=== PATIENT | female | born 1930 | race Caucasian/White ===

== ENCOUNTER → 2016-05-26 | Outpatient (CLI) | payer OTHER, MEDICARE ==
[~2016-05-26] MED LIST: DIAZEPAM 5 MG TABLET ONE
--- NOTE | 2016-05-27 08:07 | DI ---
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 Previous Exam: None at this facility. Findings: Multiple helically acquired CT images are obtained through the cervical, thoracic and lumbar spine wi thout contrast. Merged SPECT images are also obtained following the intravenous administration of 32. 8 mCi of technetium 99m MDP, and demonstrate an infrarenal abdominal aortic aneurysm measuring 3.8 cm in AP dimension. There is no free air nor free fluid. Peripheral vascular calcifications are noted throughout. There is subsegmental atelectasis in the lung bases bilaterally. 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 The surrounding soft tissues are unremarkable. The liver, adrenals, kidneys, spleen and pancreas are unremarkable. There is no mesenteric or retrope ritoneal lymphadenopathy. Large SPECT CT images are obtained of the whole body, and demonstrate some diffuse increased uptake t hroughout the cervical spine with focal increased uptake involving the posterior articulating facet o f the left C3 level. There is also increased and plate activity of the fifth sixth and seventh thoracic vertebral levels. There are also some endplate uptake of the anterior cervical spine throughout. The lumbar spine demonstrates no focal abnormal increased uptake there is some mild increased uptake involving the facets of the upper lumbar spine on the left along the concave portion of some dextrosc oliosis of the lumbar spine. There is some minimal excretory signal within the renal collecting systems. Postsurgical changes are seen of the right hip. Impression: Diffuse increased uptake throughout the entire spine consistent with a degenerative pattern. Although there is significant degenerative changes of the cervical spine there is no focally increased uptake to suggest any specific level of degenerative arthropathy of the cervical spine. There is slightly m ore uptake within the left C3 posterior articulating facet corresponding with more facet hypertrophy at the C2/3 level. Increased uptake of the thoracic spine at the T5, T6 and T7 levels. There is some mild anterior wedgi ng at these levels, but no visible fracture. 3.8 cm infrarenal abdominal aortic aneurysm.
== END ==
LOC: NM 10:58
PROVIDERS: ATTEND Physician Assistant
DX: M47.22 Other spondylosis with radiculopathy, cervical region (principal); M47.26 Other spondylosis with radiculopathy, lumbar region; M47.814 Spondylosis without myelopathy or radiculopathy, thoracic region
CPT/HCPCS: 72125; 72128; 72131; A9503

== ENCOUNTER → 2016-06-04 | Outpatient (CLI) | payer OTHER, MEDICARE ==
[2016-06-04 09:42] LABS: HEMOGLOBIN A1C 6.19 % (4.2-6.0); MEAN BLOOD GLUCOSE (CALC) 120.127 mg/dL
[2016-06-04 10:21] LABS: FREE T4 (FREE THYROXINE) 1.25 ng/dL (0.93-1.71)
[2016-06-05 16:47] LABS: VITAMIN B12 (SERUM) >1400 ng/L (180 - 914)
== END ==
LOC: LAB 09:10
PROVIDERS: ATTEND Neurological Surgery
DX: E03.9 Hypothyroidism, unspecified (principal); G62.9 Polyneuropathy, unspecified; I10 Essential (primary) hypertension
CPT/HCPCS: 36415; 82306; 82607; 82746; 83036; 84439; 84443

== ENCOUNTER → 2016-06-16 | Outpatient (CLI) | payer OTHER, MEDICARE | LOC: MMPC 10:00 | PROVIDERS: ATTEND Neurological Surgery | DX: M47.817 Spondylosis without myelopathy or radiculopathy, lumbosacral region (principal) | CPT/HCPCS: 99212; G0463 ==

== ENCOUNTER 2016-07-02 11:56 | Day surgery (SDC) | payer OTHER, MEDICARE ==
[2016-07-02] MEDS ORDERED: Ropivacaine 0.2% VIAL 2 MG/ML VIAL IAC ONE (12:00)
[2016-07-02] MEDS ORDERED: SODIUM BICARB IM ONE ×2 (12:00)
[2016-07-02] MEDS ORDERED: LIDOCAINE IM ONE ×2 (12:00)
[2016-07-02] MEDS ORDERED: BETAMET ACET/BETAMET NA PH 6 MG/1 ML - 5 ML IAC ONE (12:00)
[2016-07-02] MEDS ORDERED: Iopamidol Inj 61% 50 ML VIAL INTRATHEC ONE (12:00)
[2016-07-02 13:39] VITALS: RESP 22; TEMP 98.5
--- NOTE | 2016-07-02 17:46 | GEN.OPNOTE ---
Facet Injection Procedure: Other (Left L5 dorsal ramus block) Procedure Code - Neurosurgery: 20434 : L/S Spine Facet/Med, 1st Preoperative Diagnosis: Left L5-S1 facet arthropathy -: Consent: Rationale for procedure, nature of procedure, possible risks and benefits were discussed with the patient. Risks including allergic reaction to medications, known effects of steroid medications including transient elevations in blood sugar with aggravation of pre-existing diabetes and remote risk of aseptic necrosis of the hip. Infection or bleeding with potential risk of neurologic injury with weakness, paralysis or were all reviewed with the patient who wished to proceed. Anesthesia, sedation: No intravenous access or sedation was used. Physiologic monitoring of pulse and oxygen saturation was utilized. Procedure: The patient was placed prone on the operating room table, prepped with Chloroprep and sterilely draped. The skin was anesthetized with 1% Buffered Xylocaine. Under fluoroscopic control a 22-gauge needle was advanced to the junction of the left S1 superior facet and sacral ala. Omnipaque was injected under real-time fluoroscopy. Following this [1] ml of a mixture of Celestone (6mg/ml) and Ropivacaine was injected. AP images of the final needle placement was obtained. The needle was removed and the patient returned to the post procedure recovery room where they were monitored for any side effects. Pain assessment: Preprocedure pain [5]/10, post procedure pain [0]/10. Discharge instructions: Patient was given a pain log to be filled out and returned. A delayed response to the steroids of 2-5 days was discussed.
== END 2016-07-02 13:43 | disposition home or self-care (01) ==
LOC: SDSC 11:56
PROVIDERS: ATTEND Neurological Surgery
DX: M12.88 Other specific arthropathies, not elsewhere classified, other specified site (principal)
CPT/HCPCS: 64493; 76000; J0702; J2795; J2001

== ENCOUNTER → 2016-07-10 | Outpatient (CLI) | payer OTHER, MEDICARE ==
[2016-07-10 16:02] LABS: BILIRUBIN,TOTAL 0.5 mg/dL (0.3-1.2); BUN/CREATININE RATIO 18.75 (6-20); CALCIUM 9.5 mg/dL (8.7-10.7); CREATININE 0.8 mg/dL (0.50-1.20); POTASSIUM 4.7 meq/L (3.8-5.2)
== END ==
LOC: MOB LAB 14:50
PROVIDERS: ATTEND Nurse Practitioner
DX: R42 Dizziness and giddiness (principal); I10 Essential (primary) hypertension; E78.5 Hyperlipidemia, unspecified
CPT/HCPCS: 80053

== ENCOUNTER → 2016-08-26 | Outpatient (CLI) | payer OTHER, MEDICARE ==
--- NOTE | 2016-08-26 12:00 | DI ---
AP PELVIS and RIGHT HIP, 08/26/2016 10:43 AM: Clinical History: Acute right hip pain. Previous Exam: 08/03/2013. There is no soft tissue abnormality. The bony structures of the pelvis are normal. 2 views of the rig ht hip show the patient to be status post total right hip replacement. The prosthetic device articula royer normally and there is no evidence of loosening of the prosthesis. Readin. Status post total right hip replacement. The prosthesis articulates normally and there is no evid ence of loosening of the prosthetic device. There has been no change. 2. The AP pelvis view is unremarkable.
--- NOTE | 2016-08-26 12:17 | DI ---
LUMBAR SPINE SERIES, 08/26/2016 10:43 AM: Clinical History: Acute right hip pain. Previous Exam: 09/24/2015. 3 routine upright views are submitted. There is marked dextroscoliosis of the mid lumbar spine. There is severe disc space narrowing at all lumbar levels. Degenerative arthritic changes are present at e very lumbar apophyseal joint but most severely on the left side from T12-L1 through L2-3 and bilatera lly from L3-4 through L5-S1. Both SI joints are normal. There is a saccular aneurysm of the mid abdom inal aorta. The aorta is displaced to the right of midline at the level of the aneurysm. The exact me asurements are difficult to determine because of lack of calcification on the anterior wall but the e stimated AP dimension is 49 mm. The previous exam showed a measurement of approximately 47 mm. Readin. Diffuse disc space narrowing at every lumbar level with degenerative arthritic changes in all of the apophyseal joints bilaterally but most severely between T12-L1 through L2-3 on the left side and on both sides between L3-4 and L5-S1. There is marked dextroscoliosis of the mid lumbar spine. 2. There is a saccular mid abdominal aortic aneurysm probably in the range of 5 cm in diameter witho ut correction for magnification.
== END ==
LOC: ORTHO 10:50
PROVIDERS: ATTEND Orthopaedic Surgery
DX: M25.551 Pain in right hip (principal); S70.01XA Contusion of right hip, initial encounter; Z96.641 Presence of right artificial hip joint; W19.XXXA Unspecified fall, initial encounter
CPT/HCPCS: 72100; 73502

== ENCOUNTER → 2016-09-01 | Outpatient (CLI) | payer OTHER, MEDICARE | LOC: MMPC 10:00 | PROVIDERS: ATTEND Orthopaedic Surgery | DX: S70.01XD Contusion of right hip, subsequent encounter (principal); W18.30XD Fall on same level, unspecified, subsequent encounter; Z96.641 Presence of right artificial hip joint | CPT/HCPCS: 99212; G0463 ==

== ENCOUNTER → 2016-09-03 | Outpatient (CLI) | payer OTHER, MEDICARE | LOC: MMPC 11:11 | PROVIDERS: ATTEND Internal Medicine | DX: M54.5 Low back pain (principal); I25.10 Atherosclerotic heart disease of native coronary artery without angina pectoris; M48.06 Spinal stenosis, lumbar region; Z95.1 Presence of aortocoronary bypass graft; E78.5 Hyperlipidemia, unspecified; E03.9 Hypothyroidism, unspecified; Z96.653 Presence of artificial knee joint, bilateral; Z02.89 Encounter for other administrative examinations | CPT/HCPCS: 99214; G0463 ==

== ENCOUNTER → 2016-10-16 | Outpatient (CLI) | payer OTHER, MEDICARE | LOC: MMPC 10:00 | PROVIDERS: ATTEND Podiatrist Foot & Ankle Surgery | DX: M79.672 Pain in left foot (principal); R26.2 Difficulty in walking, not elsewhere classified; L84 Corns and callosities; G62.9 Polyneuropathy, unspecified | CPT/HCPCS: 11055 ×2; 99202; G0463 ==

== ENCOUNTER → 2016-11-17 | Outpatient (CLI) | payer OTHER, MEDICARE | LOC: MMPC 11:11 | PROVIDERS: ATTEND Internal Medicine | DX: M48.06 Spinal stenosis, lumbar region (principal); K59.00 Constipation, unspecified | CPT/HCPCS: 99214; G0463 ==

== ENCOUNTER → 2016-12-17 | Outpatient (CLI) | payer OTHER, MEDICARE ==
--- NOTE | 2016-12-17 11:58 | DI ---
XR KNEE 1 OR 2 VWS,12/17/2016 10:39 AM: Clinical History: Right knee pain Previous Exam: December 04, 2014 Findings: AP and lateral views of the right knee are obtained, and demonstrate new postsurgical changes consist ent with right total knee arthroplasty. Postsurgical changes are seen. There are prior surgical clips from saphenous vein harvest. There is no hardware loosening. No fractures are seen. Impression: Status post right total knee arthroplasty.
--- NOTE | 2016-12-18 09:00 | DI ---
XR HIP COMPLETE MIN 2VW U/L,12/17/2016 10:39 AM: Clinical History: Acute right hip pain Previous Exam: August 26, 2016 Findings: AP pelvis, AP right hip and frog-leg views of the right hip are obtained, and demonstrate stable post surgical changes consistent with right total knee arthroplasty. There is no evidence of fracture. A nonobstructive bowel gas pattern is seen. Degenerative changes of the lower lumbar spine are seen. Impression: No significant change from prior.
== END ==
LOC: MOB RAD 10:43
DX: M25.561 Pain in right knee (principal); M25.551 Pain in right hip; Z96.651 Presence of right artificial knee joint; W22.8XXA Striking against or struck by other objects, initial encounter
CPT/HCPCS: 73502; 73560; G0463; 99213